=== PATIENT | female | born 2000 | race Asian ===

== ENCOUNTER 2021-10-30 23:28 | Emergency (ER) | payer OTHER ==
[~2021-10-30] VITALS: Ht 152.4 cm; Wt 51.6 kg
[2021-10-30 23:39] VITALS: BP 101/66
[2021-10-31] MEDS ORDERED: ONDANSETRON 4MG ODT PO STA (01:32)
[2021-10-31 02:16] LABS: BASOPHILS % 0.7 % (0.0-2.0); HEMATOCRIT. 42.3 % (36.0-48.0); HEMOGLOBIN. 14.7 g/dL (12.0-16.0); LYMPHOCYTES % 34.4 % (20.0-50.0); MEAN CORPUSCULAR HEMOGLOBIN 31.1 pg (28.0-32.0); MEAN CORPUSCULAR VOLUME 89.6 fL (81.0-99.0); MEAN PLATELET VOLUME 8.6 fl (7.4-10.4); NEUTROPHILS % 47.9 % (40.0-76.0); PLATELET 295 x1000/uL (130-400); RED BLOOD CELL COUNT 4.72 mill/uL (4.2-5.4)
[2021-10-31 02:21] LABS: CHLORIDE 105 mEq/L (98-107)
[2021-10-31 02:43] LABS: CLARITY URINE CLEAR (CLEAR); COLOR URINE YELLOW (YELLOW); KETONES URINE NEGATIVE (NEGATIVE); PROTEIN URINE NEGATIVE (NEGATIVE); SPECIFIC GRAVITY URINE 1.015 (1.005-1.030)
[2021-10-31 02:46] LABS: NITRITE URINE NEGATIVE (NEGATIVE); OCCULT BLOOD URINE NEGATIVE (NEGATIVE)
[2021-10-31 02:47] LABS: LEUKOCYTE ESTERASE URINE NEGATIVE (NEGATIVE); UROBILINOGEN URINE 0.2 E.U./dL (0.2-1.0)
[2021-10-31] MEDS ORDERED: ONDA4TAB11 PO (03:07)
== END 2021-10-31 03:14 | disposition home or self-care (01) ==
LOC: ER 23:28
DX: R11.10 Vomiting, unspecified (principal)
CPT/HCPCS: 36415; 80053; 81003; 81025; 83690; 85025; 99283; Q0162